=== PATIENT | male | born 1995 | race Caucasian/White ===

== ENCOUNTER 2020-05-14 20:02 | Inpatient (IN) | payer OTHER ==
--- NOTE | 2020-05-14 20:30 | EDM.PDOC ---
<Efrain Pink - Last Filed: 05/15/20 00:04> ED HPI GENERAL MEDICAL PROBLEM - General Stated Complaint: STOMACHE PAIN/ Time Seen by Provider: 05/14/20 20:07 - Related Data Allergies Allergy/AdvReac Type Severity Reaction Status Date / Time No Known Allergies Allergy Verified 05/15/20 02:48 Home Meds: Home Meds . [No Known Home Meds] 05/14/20 [History] Course - Re-Assessments/Exams Free Text/Narrative Re-Assessment/Exam: 05/14/20 22:00 This patient was signed out to me from Isabel Fairbanks at this time. I promptly performed a detailed physical examination, my examination was performed after ED treatments were initiated by the signout provider. Patient has been under the care of the previous provider up until this point. 05/15/20 00:[address] Kumar, who agrees to admit patient. The hospitalist's documentation supersedes all other documentation on this patient with regard to any conflicts or discrepancies from this point forward. Any emergency conditions have been treated to the ability of the ED prior to admission. MEDICAL DECISION MAKING: I reviewed the patients past medical records, lab and radiographic findings. I discussed the case with the patient. My differential diagnosis included: Hepatitis, COVID-19. This patient was evaluated for the symptoms described in the history of present illness. They were evaluated in the context of the global COVID-19 pandemic, which necessitated consideration that the patient might be at risk for infection with the SARS-CoV-2 virus that causes COVID-19. Institutional protocols and algorithms that pertain to the evaluation of patients at risk for COVID-19 are in a state of rapid change based on information released by regulatory bodies including the CDC and federal and state organizations. These policies and algorithms were followed during the patient's care. I wore full PPE, N95, face shield, gown and gloves throughout my evaluation and care of this patient. Departure - Departure Time of Disposition: 00:05 Disposition: Admitted As Inpatient 68 Condition: Good Clinical Impression: COVID-19, Hepatitis, Splenomegaly - Discharge Information *PRESCRIPTION DRUG MONITORING PROGRAM REVIEWED*: Not Applicable *COPY OF PRESCRIPTION DRUG MONITORING REPORT IN PATIENT MANDEEP: Not Applicable MLP Sign Off - Signature Requirements MLP Sign Off: Yes <Makayla Fairbanks - Last Filed: 05/15/20 15:02> ED HPI GENERAL MEDICAL PROBLEM - General Source of Information: Reports: Patient History Limitations: Reports: No Limitations - History of Present Illness INITIAL COMMENTS - FREE TEXT/NARRATIVE: HISTORY AND PHYSICAL: History of present illness: Patient is a 24-year-old male who presents to the ED today with concern of "tea colored "urine, facial swelling, and "kidney pain "for the past 4 days. Patient states that he has been feeling more rundown and tired in general and over the past 4 days has noticed that his urine is tea colored and he began having some pain in his kidney area. Patient states that when he wakes up in the morning, his face is more swollen and improves throughout the day. Patient states that at times he has a hard time opening up his eyes due to facial swelling but at this time is more improved than it has been. Patient states he does not have any health history and has not been taking any medications. Patient denies fever, chills, chest pain, shortness of breath, or cough. Denies headache, neck stiff ness, change in vision, syncope, or near syncope. Denies nausea, vomiting, abdominal pain, diarrhea, constipation, or dysuria. Has not noted any blood in urine or stool. Patient has been eating and drinking appropriately. Review of systems: As per history of present illness and below otherwise all systems reviewed and negative. Past medical history: As per history of present illness and as reviewed below otherwise noncontributory. Surgical history: As per history of present illness and as reviewed below otherwise noncontributory. Social history: See social history for further information Family history: As per history of present illness and as reviewed below otherwise noncontributory. Physical exam: General: Patient is alert, oriented, and in no acute distress. Patient sitting comfortably on exam table. HEENT: Mild edema of the upper and lower eyelids without erythema. Otherwise, atraumatic, normocephalic, pupils equal and reactive bilaterally, negative for conjunctival pallor or scleral icterus, mucous membranes moist, TMs normal bilaterally, throat clear, neck supple, nontender, trachea midline. No drooling or trismus noted. No meningeal signs. No hot potato voice noted. Lungs: Clear to auscultation, breath sounds equal bilaterally, chest nontender. Heart: S1S2, regular rate and rhythm without overt murmur Abdomen: Soft, nondistended, nontender. Negative for masses or hepatosplenomegaly. Negative for costovertebral tenderness. Pelvis: Stable nontender. Genitourinary: Deferred. Rectal: Deferred. Skin: Intact, warm, dry. No lesions or rashes noted. Extremities: Atraumatic, negative for cords or calf pain. Neurovascular unremarkable. Neuro: Awake, alert, oriented. Cranial nerves II through XII unremarkable. Cerebellum unremarkable. Motor and sensory unremarkable throughout. Exam nonfocal. Notes: Lab did call and states patient was positive for COVID [address] Pink has assumed care of patient and will follow remaining diagnostics and disposition for patient. Voices understanding and is agreeable to plan of care. Denies any further questions or concerns at this time. Diagnostics: CBC, CMP, UA, gonorrhea and chlamydia, microalbumin, CPK, Pt/INR, Etoh, acetaminophen Therapeutics: Prescription: Impression: Hepatitis COVID 19 infection Plan: Definitive disposition and diagnosis as appropriate pending reevaluation and review of above. lower abdominal Pain Score (Numeric/FACES): 5 ED ROS GENERAL - Review of Systems Review Of Systems: Comprehensive ROS is negative, except as noted in HPI. ED EXAM, GENERAL - Physical Exam Exam: See Below (see dictation) Course - Vital Signs Last Recorded V/S: Last Vital Signs Temp 97.9 F 05/15/20 11:40 Pulse 76 05/15/20 11:40 Resp 17 05/15/20 11:40 BP 107/68 05/15/20 11:40 Pulse Ox 96 05/15/20 11:40 - Orders/Labs/Meds Orders: Active Orders 24 hr Category Date Time Status CHLAMYDIA AND GONORRHEA BY TMA Stat Lab 05/14/20 20:37 Received Medication Orders Morphine Sulfate (Morphine) 2 mg IVPUSH Q3H PRN PRN Reason: Pain Last Admin: 05/15/20 03:09 Dose: 2 mg Documented by: LAMBERTO Labs: Laboratory Tests 05/14/20 05/14/20 05/14/20 Range/Units 20:25 20:56 20:56 WBC 10.71 (4.0-11.0) K/uL RBC 4.87 (4.50-5.90) M/uL Hgb 14.6 (13.0-17.0) g/dL Hct 41.5 (38.0-50.0) % MCV 85.2 (80.0-98.0) fL MCH 30.0 (27.0-32.0) pg MCHC 35.2 (31.0-37.0) g/dL RDW Std Deviation 40.0 (28.0-62.0) fl RDW Coeff of Ryan 13 (11.0-15.0) % Plt Count 93 L (150-400) K/uL MPV 10.90 (7.40-12.00) fL Neut % (Auto) 15.1 L (48.0-80.0) % Lymph % (Auto) 68.4 H (16.0-40.0) % [place] % (Auto) 13.7 (0.0-15.0) % Eos % (Auto) 0.1 (0.0-7.0) % Baso % (Auto) 2.7 H (0.0-1.5) % Neut # (Auto) 1.6 (1.4-5.7) K/uL Lymph # (Auto) 7.3 H (0.6-2.4) K/uL [place] # (Auto) 1.5 H (0.0-0.8) K/uL Eos # (Auto) 0.0 (0.0-0.7) K/uL Baso # (Auto) 0.3 H (0.0-0.1) K/uL Nucleated RBC % 0.0 /100WBC Nucleated RBCs # 0 K/uL INR Sodium 135 L (136-148) mmol/L Potassium 3.7 (3.5-5.1) mmol/L Chloride 98 (98-107) mmol/L Carbon Dioxide 25.5 (21.0-32.0) mmol/L BUN 9 (7.0-18.0) mg/dL Creatinine 1.1 (0.8-1.3) mg/dL Est Cr Clr Drug Dosing 101.37 mL/min Estimated GFR (MDRD) > 60.0 ml/min Glucose 100 (74-106) mg/dL Calcium 9.1 (8.5-10.1) mg/dL Total Bilirubin 2.4 H (0.2-1.0) mg/dL AST 86 H (15-37) IU/L ALT 149 H (14-63) IU/L Alkaline Phosphatase 457 H (46-116) U/L Creatine Kinase 58 (26-308) U/L Total Protein 7.1 (6.4-8.2) g/dL Albumin 3.9 (3.4-5.0) g/dL Globulin 3.2 (2.6-4.0) g/dL Albumin/Globulin Ratio 1.2 (0.9-1.6) Urine Color YELLOW Urine Appearance SLT CLOUDY Urine pH 6.0 (5.0-8.0) Ur Specific [place] 1.020 (1.001-1.035) Urine Protein TRACE H (NEGATIVE) mg/dL Urine Glucose (UA) NEGATIVE (NEGATIVE) mg/dL Urine Ketones TRACE H (NEGATIVE) mg/dL Urine Occult Blood TRACE-INTACT H (NEGATIVE) Urine Nitrite NEGATIVE (NEGATIVE) Urine Bilirubin LARGE H (NEGATIVE) Urine Ictotest POSITIVE Urine Urobilinogen 2.0 H (<2.0) EU/dL Ur Leukocyte Esterase NEGATIVE (NEGATIVE) Urine RBC 0-2 (0-2/HPF) Urine WBC 0-1 (0-5/HPF) Ur Epithelial Cells RARE (NONE-FEW) Calcium Oxalate Crystal FEW (NEGATIVE) Urine Bacteria FEW (NEGATIVE) Urinalysis Comment Acetaminophen ug/mL Ethyl Alcohol mg/dL 05/14/20 05/14/20 Range/Units 20:56 20:56 WBC (4.0-11.0) K/uL RBC (4.50-5.90) M/uL Hgb (13.0-17.0) g/dL Hct (38.0-50.0) % MCV (80.0-98.0) fL MCH (27.0-32.0) pg MCHC (31.0-37.0) g/dL RDW Std Deviation (28.0-62.0) fl RDW Coeff of Ryan (11.0-15.0) % Plt Count (150-400) K/uL MPV (7.40-12.00) fL Neut % (Auto) (48.0-80.0) % Lymph % (Auto) (16.0-40.0) % [place] % (Auto) (0.0-15.0) % Eos % (Auto) (0.0-7.0) % Baso % (Auto) (0.0-1.5) % Neut # (Auto) (1.4-5.7) K/uL Lymph # (Auto) (0.6-2.4) K/uL [place] # (Auto) (0.0-0.8) K/uL Eos # (Auto) (0.0-0.7) K/uL Baso # (Auto) (0.0-0.1) K/uL Nucleated RBC % /100WBC Nucleated RBCs # K/uL INR 1.09 Sodium (136-148) mmol/L Potassium (3.5-5.1) mmol/L Chloride (98-107) mmol/L Carbon Dioxide (21.0-32.0) mmol/L BUN (7.0-18.0) mg/dL Creatinine (0.8-1.3) mg/dL Est Cr Clr Drug Dosing mL/min Estimated GFR (MDRD) ml/min Glucose (74-106) mg/dL Calcium (8.5-10.1) mg/dL Total Bilirubin (0.2-1.0) mg/dL AST (15-37) IU/L ALT (14-63) IU/L Alkaline Phosphatase (46-116) U/L Creatine Kinase (26-308) U/L Total Protein (6.4-8.2) g/dL Albumin (3.4-5.0) g/dL Globulin (2.6-4.0) g/dL Albumin/Globulin Ratio (0.9-1.6) Urine Color Urine Appearance Urine pH (5.0-8.0) Ur Specific [place] (1.001-1.035) Urine Protein (NEGATIVE) mg/dL Urine Glucose (UA) (NEGATIVE) mg/dL Urine Ketones (NEGATIVE) mg/dL Urine Occult Blood (NEGATIVE) Urine Nitrite (NEGATIVE) Urine Bilirubin (NEGATIVE) Urine Ictotest Urine Urobilinogen (<2.0) EU/dL Ur Leukocyte Esterase (NEGATIVE) Urine RBC (0-2/HPF) Urine WBC (0-5/HPF) Ur Epithelial Cells (NONE-FEW) Calcium Oxalate Crystal (NEGATIVE) Urine Bacteria (NEGATIVE) Urinalysis Comment Acetaminophen <2.0 ug/mL Ethyl Alcohol < 3.0 mg/dL Meds: Medications Generic Name Dose Route Start Last Admin Trade Name Freq PRN Reason Stop Dose Admin Morphine Sulfate 2 mg 05/15/20 02:45 05/15/20 03:09 Morphine IVPUSH 2 mg Q3H PRN Administration Pain Discontinued Medications Generic Name Dose Route Start Last Admin Trade Name Rober PRN Reason Stop Dose Admin Sodium Chloride 1,000 mls @ 125 mls/hr 05/15/20 02:45 05/15/20 02:59 Normal Saline IV 125 mls/hr ASDIRECTED ABDIEL Administration - My Orders Last 24 Hours: My Active Orders 05/14/20 20:37 CHLAMYDIA AND GONORRHEA BY TMA Stat - Assessment/Plan Last 24 Hours: My Active Orders 05/14/20 20:37 CHLAMYDIA AND GONORRHEA BY TMA Stat
[2020-05-14 21:23] LABS: BLOOD UREA NITROGEN,BUN 9 mg/dL (7.0-18.0); CARBON DIOXIDE,CO2 25.5 mmol/L (21.0-32.0); CHLORIDE,CL 98 mmol/L (98-107); GLUCOSE RANDOM 100 mg/dL (74-106); POTASSIUM,K 3.7 mmol/L (3.5-5.1); SODIUM,NA 135 mmol/L (136-148)
[2020-05-14 22:31] LABS: ACETAMINOPHEN <2.0 ug/mL
--- NOTE | 2020-05-14 23:56 | US ---
INDICATION: Generalized abdominal pain TECHNIQUE: Ultrasound abdomen complete. Sonographic images of the entire abdomen were obtained using loza-scale and color Doppler. COMPARISON: None. FINDINGS: Liver: Borderline hepatomegaly without focal lesion. Echogenicity normal. Gallbladder: Contracted gallbladder without cholelithiasis. Common bile duct: 3 mm. Pancreas: Partially obscured by bowel gas without discrete abnormality. Spleen: Moderate splenomegaly with a craniocaudal diameter of 15.3 centimeters although without focal lesion. Kidneys: Both kidneys are normal in size. Normal echotexture and cortex. No masses, stones, or hydronephrosis. Vasculature: Proximal abdominal aorta and IVC are normal in caliber. IMPRESSION: 1. Contracted gallbladder without gross cholelithiasis or cholecystitis. 2. Moderate splenomegaly and borderline hepatomegaly. Dictated by Ahmet Sherman MD @ May 14 2020 11:51PM Signed by Dr. Ahmet Sherman @ May 14 2020 11:55PM
[2020-05-15] MEDS ORDERED: Sodium Chloride 0.9% 1,000 ML IV SCH (02:45)
[2020-05-15] MEDS: Morphine 2 MG/ML SYRINGE IVPUSH PRN ×2 (03:09→20:42)
[2020-05-15 06:29] LABS: BLOOD UREA NITROGEN,BUN 8 mg/dL (7.0-18.0); CARBON DIOXIDE,CO2 26.7 mmol/L (21.0-32.0); CHLORIDE,CL 99 mmol/L (98-107); GLUCOSE RANDOM 86 mg/dL (74-106); POTASSIUM,K 3.9 mmol/L (3.5-5.1); SODIUM,NA 137 mmol/L (136-148)
--- NOTE | 2020-05-15 07:38 | PCM.HP.2 ---
H&P History of Present Illness - General Date of Service: 05/15/20 Admit Problem/Dx: Admission Diagnosis/Problem Admission Diagnosis/Problem Liver enzymes abnormal Source of Information: Patient History Limitations: Reports: No Limitations - History of Present Illness Initial Comments - Free Text/Narative: Patient is a 24-year-old male with no significant past medical history presenting to the ED this morning after experiencing 1 week of increasing swelling of the face, occasional abdominal discomfort and "tea" colored urine. Denies any fever, chills, body aches, sick contacts however did test positive for COVID 2 days prior. Patient cannot recall any overt contact with anyone that is sick. Endorses taking 1 g of Benadryl daily for sleep; and 7 g of Kratom daily. Denies any illicit drug abuse or recent alcohol binging; ED course: Abdominal ultrasound: No acute gallbladder pathology however moderate splenomegaly and borderline hepatomegaly were appreciated. Vitals otherwise stable COVID negative Bedside: Endorsing no pain at this time; last received morphine at 3 AM; denies any fevers, chills, body aches. Denies any respiratory distress. lower abdominal Pain Score (Numeric/FACES): 6 - Related Data Allergies/Adverse Reactions: Allergies Allergy/AdvReac Type Severity Reaction Status Date / Time No Known Allergies Allergy Verified 05/15/20 02:48 Home Medications: Home Meds . [No Known Home Meds] 05/14/20 [History] Past Medical History - Past Health History Medical/Surgical History: Denies Medical/Surgical History Social & Family History - Family History Family Medical History: Noncontributory - Tobacco Use Smoking Status *Q: Never Smoker Second Hand Smoke Exposure: No - Caffeine Use Caffeine Use: Reports: Soda, Tea - Alcohol Use Days Per Week of Alcohol Use: 0 - Recreational Drug Use Recreational Drug Use: No H&P Review of Systems - Review of Systems: Review Of Systems: See Below General: Reports: Fatigue, Night Sweats HEENT: Reports: No Symptoms, Sore Throat, Other (+lidia-orbital swelling w. mild conjunctiviits ). Denies: Sinus Congestion, Visual Changes Pulmonary: Reports: No Symptoms Cardiovascular: Reports: No Symptoms Gastrointestinal: Reports: No Symptoms. Denies: Constipation, Diarrhea Genitourinary: Reports: No Symptoms. Denies: Dysuria, Frequency Musculoskeletal: Reports: No Symptoms Psychiatric: Reports: No Symptoms Neurological: Reports: No Symptoms Hematologic/Lymphatic: Reports: No Symptoms Exam - Exam Exam: See Below - Vital Signs Vital Signs: Last Vital Signs Temp 97.9 F 05/15/20 03:00 Pulse 74 05/15/20 03:00 Resp 16 05/15/20 03:00 BP 104/63 05/15/20 03:00 Pulse Ox 95 05/15/20 03:00 Weight: 68.039 kg - Exam Quality Assessment: No: Supplemental Oxygen General: Alert, Oriented, Cooperative HEENT: Other (+mild b.l conjunctivitis: posterior pharynx: tonsillitis w. exudates appreciated; uvula midline w. patent airway; no signs of onstruction ) Lungs: Clear to Auscultation, Normal Respiratory Effort Cardiovascular: Regular Rate, Regular Rhythm GI/Abdominal Exam: Soft, Non-Tender, No Organomegaly Back Exam: Normal Inspection Extremities: Normal Inspection, No Pedal Edema Skin: Warm, Dry. No: Rash Neurological: Cranial Nerves Intact Neuro Extensive - Mental Status: Alert, Oriented x3, Normal Mood/Affect Neuro Extensive - Motor, Sensory, Reflexes: Normal Gait Psychiatric: Alert, Normal Affect, Normal Mood - Patient Data Lab Results Last 24 hrs: Laboratory Results - last 24 hr 05/14/20 05/14/20 05/14/20 Range/Units 20:25 20:56 20:56 WBC 10.71 (4.0-11.0) K/uL RBC 4.87 (4.50-5.90) M/uL Hgb 14.6 (13.0-17.0) g/dL Hct 41.5 (38.0-50.0) % MCV 85.2 (80.0-98.0) fL MCH 30.0 (27.0-32.0) pg MCHC 35.2 (31.0-37.0) g/dL RDW Std Deviation 40.0 (28.0-62.0) fl RDW Coeff of Ryan 13 (11.0-15.0) % Plt Count 93 L (150-400) K/uL MPV 10.90 (7.40-12.00) fL Neut % (Auto) 15.1 L (48.0-80.0) % Lymph % (Auto) 68.4 H (16.0-40.0) % [place] % (Auto) 13.7 (0.0-15.0) % Eos % (Auto) 0.1 (0.0-7.0) % Baso % (Auto) 2.7 H (0.0-1.5) % Neut # (Auto) 1.6 (1.4-5.7) K/uL Lymph # (Auto) 7.3 H (0.6-2.4) K/uL [place] # (Auto) 1.5 H (0.0-0.8) K/uL Eos # (Auto) 0.0 (0.0-0.7) K/uL Baso # (Auto) 0.3 H (0.0-0.1) K/uL Add Manual Diff Neutrophils % (Manual) (48.0-80.0) % Lymphocytes % (Manual) (16.0-40.0) % Monocytes % (Manual) (0.0-15.0) % Basophils % (Manual) (0.0-1.5) % Nucleated RBC % 0.0 /100WBC Absolute Seg Neuts (1.4-5.7) Lymphocytes # (Manual) (0.6-2.4) Monocytes # (Manual) (0.0-0.8) Basophils # (Manual) (0.0-0.1) Nucleated RBCs # 0 K/uL INR Sodium 135 L (136-148) mmol/L Potassium 3.7 (3.5-5.1) mmol/L Chloride 98 (98-107) mmol/L Carbon Dioxide 25.5 (21.0-32.0) mmol/L BUN 9 (7.0-18.0) mg/dL Creatinine 1.1 (0.8-1.3) mg/dL Est Cr Clr Drug Dosing 101.37 mL/min Estimated GFR (MDRD) > 60.0 ml/min Glucose 100 (74-106) mg/dL Calcium 9.1 (8.5-10.1) mg/dL Total Bilirubin 2.4 H (0.2-1.0) mg/dL AST 86 H (15-37) IU/L ALT 149 H (14-63) IU/L Alkaline Phosphatase 457 H (46-116) U/L Creatine Kinase 58 (26-308) U/L Total Protein 7.1 (6.4-8.2) g/dL Albumin 3.9 (3.4-5.0) g/dL Globulin 3.2 (2.6-4.0) g/dL Albumin/Globulin Ratio 1.2 (0.9-1.6) Urine Color YELLOW Urine Appearance SLT CLOUDY Urine pH 6.0 (5.0-8.0) Ur Specific [place] 1.020 (1.001-1.035) Urine Protein TRACE H (NEGATIVE) mg/dL Urine Glucose (UA) NEGATIVE (NEGATIVE) mg/dL Urine Ketones TRACE H (NEGATIVE) mg/dL Urine Occult Blood TRACE-INTACT H (NEGATIVE) Urine Nitrite NEGATIVE (NEGATIVE) Urine Bilirubin LARGE H (NEGATIVE) Urine Ictotest POSITIVE Urine Urobilinogen 2.0 H (<2.0) EU/dL Ur Leukocyte Esterase NEGATIVE (NEGATIVE) Urine RBC 0-2 (0-2/HPF) Urine WBC 0-1 (0-5/HPF) Ur Epithelial Cells RARE (NONE-FEW) Calcium Oxalate Crystal FEW (NEGATIVE) Urine Bacteria FEW (NEGATIVE) Urinalysis Comment Acetaminophen ug/mL Ethyl Alcohol mg/dL SARS Virus RNA (PCR) (NEGATIVE) 05/14/20 05/14/20 05/15/20 Range/Units 20:56 20:56 00:37 WBC (4.0-11.0) K/uL RBC (4.50-5.90) M/uL Hgb (13.0-17.0) g/dL Hct (38.0-50.0) % MCV (80.0-98.0) fL MCH (27.0-32.0) pg MCHC (31.0-37.0) g/dL RDW Std Deviation (28.0-62.0) fl RDW Coeff of Ryan (11.0-15.0) % Plt Count (150-400) K/uL MPV (7.40-12.00) fL Neut % (Auto) (48.0-80.0) % Lymph % (Auto) (16.0-40.0) % [place] % (Auto) (0.0-15.0) % Eos % (Auto) (0.0-7.0) % Baso % (Auto) (0.0-1.5) % Neut # (Auto) (1.4-5.7) K/uL Lymph # (Auto) (0.6-2.4) K/uL [place] # (Auto) (0.0-0.8) K/uL Eos # (Auto) (0.0-0.7) K/uL Baso # (Auto) (0.0-0.1) K/uL Add Manual Diff Neutrophils % (Manual) (48.0-80.0) % Lymphocytes % (Manual) (16.0-40.0) % Monocytes % (Manual) (0.0-15.0) % Basophils % (Manual) (0.0-1.5) % Nucleated RBC % /100WBC Absolute Seg Neuts (1.4-5.7) Lymphocytes # (Manual) (0.6-2.4) Monocytes # (Manual) (0.0-0.8) Basophils # (Manual) (0.0-0.1) Nucleated RBCs # K/uL INR 1.09 Sodium (136-148) mmol/L Potassium (3.5-5.1) mmol/L Chloride (98-107) mmol/L Carbon Dioxide (21.0-32.0) mmol/L BUN (7.0-18.0) mg/dL Creatinine (0.8-1.3) mg/dL Est Cr Clr Drug Dosing mL/min Estimated GFR (MDRD) ml/min Glucose (74-106) mg/dL Calcium (8.5-10.1) mg/dL Total Bilirubin (0.2-1.0) mg/dL AST (15-37) IU/L ALT (14-63) IU/L Alkaline Phosphatase (46-116) U/L Creatine Kinase (26-308) U/L Total Protein (6.4-8.2) g/dL Albumin (3.4-5.0) g/dL Globulin (2.6-4.0) g/dL Albumin/Globulin Ratio (0.9-1.6) Urine Color Urine Appearance Urine pH (5.0-8.0) Ur Specific [place] (1.001-1.035) Urine Protein (NEGATIVE) mg/dL Urine Glucose (UA) (NEGATIVE) mg/dL Urine Ketones (NEGATIVE) mg/dL Urine Occult Blood (NEGATIVE) Urine Nitrite (NEGATIVE) Urine Bilirubin (NEGATIVE) Urine Ictotest Urine Urobilinogen (<2.0) EU/dL Ur Leukocyte Esterase (NEGATIVE) Urine RBC (0-2/HPF) Urine WBC (0-5/HPF) Ur Epithelial Cells (NONE-FEW) Calcium Oxalate Crystal (NEGATIVE) Urine Bacteria (NEGATIVE) Urinalysis Comment Acetaminophen <2.0 ug/mL Ethyl Alcohol < 3.0 mg/dL SARS Virus RNA (PCR) NEGATIVE (NEGATIVE) 05/15/20 05/15/20 Range/Units 05:50 05:50 WBC 11.29 H (4.0-11.0) K/uL RBC 4.83 (4.50-5.90) M/uL Hgb 14.0 (13.0-17.0) g/dL Hct 41.2 (38.0-50.0) % MCV 85.3 (80.0-98.0) fL MCH 29.0 (27.0-32.0) pg MCHC 34.0 (31.0-37.0) g/dL RDW Std Deviation 40.2 (28.0-62.0) fl RDW Coeff of Ryan 13 (11.0-15.0) % Plt Count 100 L (150-400) K/uL MPV 10.50 (7.40-12.00) fL Neut % (Auto) (48.0-80.0) % Lymph % (Auto) (16.0-40.0) % [place] % (Auto) (0.0-15.0) % Eos % (Auto) (0.0-7.0) % Baso % (Auto) (0.0-1.5) % Neut # (Auto) (1.4-5.7) K/uL Lymph # (Auto) (0.6-2.4) K/uL [place] # (Auto) (0.0-0.8) K/uL Eos # (Auto) (0.0-0.7) K/uL Baso # (Auto) (0.0-0.1) K/uL Add Manual Diff YES Neutrophils % (Manual) 18 L (48.0-80.0) % Lymphocytes % (Manual) 78 H (16.0-40.0) % Monocytes % (Manual) 3 (0.0-15.0) % Basophils % (Manual) 1 (0.0-1.5) % Nucleated RBC % 0.0 /100WBC Absolute Seg Neuts 2.0 (1.4-5.7) Lymphocytes # (Manual) 8.8 H (0.6-2.4) Monocytes # (Manual) 0.3 (0.0-0.8) Basophils # (Manual) 0.1 (0.0-0.1) Nucleated RBCs # 0 K/uL INR Sodium 137 (136-148) mmol/L Potassium 3.9 (3.5-5.1) mmol/L Chloride 99 (98-107) mmol/L Carbon Dioxide 26.7 (21.0-32.0) mmol/L BUN 8 (7.0-18.0) mg/dL Creatinine 1.1 (0.8-1.3) mg/dL Est Cr Clr Drug Dosing 101.37 mL/min Estimated GFR (MDRD) > 60.0 ml/min Glucose 86 (74-106) mg/dL Calcium 8.8 (8.5-10.1) mg/dL Total Bilirubin 2.4 H (0.2-1.0) mg/dL AST 97 H (15-37) IU/L ALT 153 H (14-63) IU/L Alkaline Phosphatase 456 H (46-116) U/L Creatine Kinase (26-308) U/L Total Protein 6.8 (6.4-8.2) g/dL Albumin 3.7 (3.4-5.0) g/dL Globulin 3.1 (2.6-4.0) g/dL Albumin/Globulin Ratio 1.2 (0.9-1.6) Urine Color Urine Appearance Urine pH (5.0-8.0) Ur Specific [place] (1.001-1.035) Urine Protein (NEGATIVE) mg/dL Urine Glucose (UA) (NEGATIVE) mg/dL Urine Ketones (NEGATIVE) mg/dL Urine Occult Blood (NEGATIVE) Urine Nitrite (NEGATIVE) Urine Bilirubin (NEGATIVE) Urine Ictotest Urine Urobilinogen (<2.0) EU/dL Ur Leukocyte Esterase (NEGATIVE) Urine RBC (0-2/HPF) Urine WBC (0-5/HPF) Ur Epithelial Cells (NONE-FEW) Calcium Oxalate Crystal (NEGATIVE) Urine Bacteria (NEGATIVE) Urinalysis Comment Acetaminophen ug/mL Ethyl Alcohol mg/dL SARS Virus RNA (PCR) (NEGATIVE) Result Diagrams: 05/15/20 05:50 05/15/20 05:50 Sepsis Event Note - Evaluation Sepsis Screening Result: No Definite Risk - Focused Exam Vital Signs: Vital Signs Temp Pulse Resp BP BP Pulse Ox 05/15/20 03:00 97.9 F 74 16 104/63 95 05/15/20 02:16 71 16 109/68 94 L 05/15/20 01:46 78 18 109/68 94 L 05/15/20 00:02 96.8 F L 78 20 127/74 98 05/14/20 20:31 97.8 F 85 18 115/74 95 Problem List Initiated/Reviewed/Updated: Yes Orders Last 24hrs: Active Orders 24 hr Category Date Time Status Admission Status [Patient Status] [ADT] Stat ADT 05/15/20 00:17 Active Regular Diet [DIET] Diet 05/15/20 Breakfast Active CHLAMYDIA AND GONORRHEA BY TMA Stat Lab 05/14/20 20:37 Received Morphine Med 05/15/20 02:45 Active 2 mg IVPUSH Q3H PRN Sodium Chloride 0.9% [Normal Saline] 1,000 ml Med 05/15/20 02:45 Active IV ASDIRECTED Medication Orders Sodium Chloride (Normal Saline) 1,000 mls @ 125 mls/hr IV ASDIRECTED ABDIEL Last Admin: 05/15/20 02:59 Dose: 125 mls/hr Documented by: LAMBERTO Morphine Sulfate (Morphine) 2 mg IVPUSH Q3H PRN PRN Reason: Pain Last Admin: 05/15/20 03:09 Dose: 2 mg Documented by: LAMBERTO Assessment/Plan Comment:: Assessment: 1. New onset facial swelling with dark-colored urine 2. Recently COVID positive 3. Positive for infectious mononucleosis 4. Transaminitis with elevated alkaline phosphatase 5. Splenomegaly with moderate hepatomegaly with transaminitis Plan Admit to observation.. Full code. I's and O's per routine. Vitals per routine. Full isolation precautions secondary to COVID + status 1. Elevated liver enzymes, trace protein in urine, and facial swelling: Concerns for PSGN; negative strep; sent for cultures [place] screen however was positive COVID negative on admission however patient endorses testing +2 days earlier Does mention sore throat with increasing fatigue; possibly secondary to his infectious mononucleosis combined with COVID-19 symptomatology Continue to monitor. No acute distress We will order a urine protein/24-hour collection; reassess in AM 2. Liver enzymes elevation could also possibly be due to [id number] use of Kratom; we will continue to monitor If abdominal pain returns or LFTs are trending upwards; will consider CT abdomen and pelvis; however physical examination yields no abdominal tenderness and or organomegaly.
[2020-05-16 06:29] LABS: BLOOD UREA NITROGEN,BUN 8 mg/dL (7.0-18.0); CARBON DIOXIDE,CO2 26.1 mmol/L (21.0-32.0); CHLORIDE,CL 102 mmol/L (98-107); GLUCOSE RANDOM 96 mg/dL (74-106); POTASSIUM,K 3.6 mmol/L (3.5-5.1); SODIUM,NA 139 mmol/L (136-148)
--- NOTE | 2020-05-16 20:03 | PCM.DCSUM1 ---
<Huey Echeverria - Last Filed: 05/16/20 20:18> Discharge Summary - Hospital Course Free Text/Narrative:: 24-year-old male admitted to the medical floor due to elevated transaminases with elevated alkaline phosphatase, COVID +. Patient had a one week history of facial swelling, abdominal discomfort and "tea" colored urine. Patient denies any exposure to know sick contacts, illicit drug use, alcohol abuse, but does states that he consumes 7 g of Kratom daily. During thew patients hospital stay, he denied any fever, chills, abdominal pain, nausea, vomiting, diarrhea, SOB, chest pain. Hepatitis Lab and 24hr urine were collected. Results to follow. Diagnosis: Stroke: No - Discharge Data Discharge Date: 05/16/20 Discharge Disposition: Home, Self-Care 01 Condition: Stable - Referral to Home Health Primary Care Physician: PCP None - Discharge Plan *PRESCRIPTION DRUG MONITORING PROGRAM REVIEWED*: Not Applicable *COPY OF PRESCRIPTION DRUG MONITORING REPORT IN PATIENT MANDEEP: Not Applicable Home Medications: Home Meds . [No Known Home Meds] 05/14/20 [History] Patient Handouts: COVID-19 Frequently Asked Questions, COVID-19, COVID-19: How to Protect Yourself and Others - CDC, Chronic Kidney Disease, Adult, Easy-to- Read, Infection Prevention in the Home, Coronavirus Information 12/01/19, Prevent the Spread of COVID-19 if You Are Sick - [facility] [facility] Referrals: Olivia Morales MD [Resident] - - Discharge Summary/Plan Comment DC Time >30 min.: No - Review of Systems General: Reports: No Symptoms HEENT: Reports: No Symptoms Pulmonary: Reports: No Symptoms Cardiovascular: Reports: No Symptoms Gastrointestinal: Reports: No Symptoms Genitourinary: Reports: No Symptoms - Patient Data Vitals - Most Recent: Last Vital Signs Temp 98.8 F 05/16/20 12:00 Pulse 85 05/16/20 12:00 Resp 18 05/16/20 12:00 BP 113/70 05/16/20 12:00 Pulse Ox 96 05/16/20 12:00 Weight - Most Recent: 68.039 kg I&O - Last 24 hours: Intake & Output 05/16/20 05/16/20 05/16/20 06:59 14:59 22:59 Intake Total 1500 900 Output Total 900 200 Balance 600 700 Lab Results - Last 24 hrs: Laboratory Results - last 24 hr 05/15/20 05/16/20 05/16/20 Range/Units 14:30 06:05 06:05 WBC 12.48 H (4.0-11.0) K/uL RBC 4.92 (4.50-5.90) M/uL Hgb 14.5 (13.0-17.0) g/dL Hct 42.0 (38.0-50.0) % MCV 85.4 (80.0-98.0) fL MCH 29.5 (27.0-32.0) pg MCHC 34.5 (31.0-37.0) g/dL RDW Std Deviation 40.8 (28.0-62.0) fl RDW Coeff of Ryan 13 (11.0-15.0) % Plt Count 105 L (150-400) K/uL MPV 10.40 (7.40-12.00) fL Add Manual Diff YES Neutrophils % (Manual) 14 L (48.0-80.0) % Band Neutrophils % 1 % Lymphocytes % (Manual) 79 H (16.0-40.0) % Monocytes % (Manual) 6 (0.0-15.0) % Nucleated RBC % 0.0 /100WBC Absolute Seg Neuts 1.7 (1.4-5.7) Band Neutrophils # 0.1 Lymphocytes # (Manual) 9.9 H (0.6-2.4) Monocytes # (Manual) 0.7 (0.0-0.8) Nucleated RBCs # 0 K/uL Sodium 139 (136-148) mmol/L Potassium 3.6 (3.5-5.1) mmol/L Chloride 102 (98-107) mmol/L Carbon Dioxide 26.1 (21.0-32.0) mmol/L BUN 8 (7.0-18.0) mg/dL Creatinine 1.0 (0.8-1.3) mg/dL Est Cr Clr Drug Dosing 111.51 mL/min Estimated GFR (MDRD) > 60.0 ml/min Glucose 96 (74-106) mg/dL Calcium 8.8 (8.5-10.1) mg/dL Total Bilirubin 2.4 H (0.2-1.0) mg/dL AST 122 H (15-37) IU/L ALT 185 H (14-63) IU/L Alkaline Phosphatase 490 H (46-116) U/L Total Protein 6.7 (6.4-8.2) g/dL Albumin 3.5 (3.4-5.0) g/dL Globulin 3.2 (2.6-4.0) g/dL Albumin/Globulin Ratio 1.1 (0.9-1.6) Ur Collection Duration 24 Urine Total Volume 2525 H (800-1800) Ur Total Protein Conc 9.9 (0-14) mg/dL Ur Total Protein 24 Hr 249.9 mg/24HRS FRANCOIS Results - Last 24 hrs: Microbiology 05/15/20 09:15 Quick Strep Confirmation Culture - Final Throat NO GROUP A STREP ISOLATED REFERENCE RANGE: NEGATIVE Group A Streptococcus Rapid Screen - Final NEGATIVE STREP A SCREEN REFERENCE RANGE: NEGATIVE Med Orders - Current: Current Medications Morphine Sulfate (Morphine) 2 mg IVPUSH Q3H PRN PRN Reason: Pain Last Admin: 05/15/20 20:42 Dose: 2 mg Documented by: Discontinued Medications Sodium Chloride (Normal Saline) 1,000 mls @ 125 mls/hr IV ASDIRECTED ABDIEL Last Admin: 05/15/20 02:59 Dose: 125 mls/hr Documented by: - Exam General: Reports: Alert, Oriented, Cooperative HEENT: Reports: Pupils Equal, EOMI Neck: Reports: Trachea Midline Lungs: Reports: Clear to Auscultation, Normal Respiratory Effort Cardiovascular: Reports: Regular Rhythm GI/Abdominal Exam: Normal Bowel Sounds, Soft, Non-Tender Back Exam: Reports: Normal Inspection Extremities: Normal Inspection, Normal Range of Motion, No Pedal Edema Skin: Reports: Warm, Dry <Silvio Cardoso - Last Filed: 05/16/20 22:30> Discharge Summary - Referral to Home Health Primary Care Physician: PCP None - Patient Data Vitals - Most Recent: Last Vital Signs Temp 37.1 C 05/16/20 12:00 Pulse 85 05/16/20 12:00 Resp 18 05/16/20 12:00 BP 113/70 05/16/20 12:00 Pulse Ox 96 05/16/20 12:00 I&O - Last 24 hours: Intake & Output 05/16/20 05/16/20 05/16/20 06:59 14:59 22:59 Intake Total 1500 900 Output Total 900 200 Balance 600 700 Lab Results - Last 24 hrs: Laboratory Results - last 24 hr 05/15/20 05/16/20 05/16/20 Range/Units 14:30 06:05 06:05 WBC 12.48 H (4.0-11.0) K/uL RBC 4.92 (4.50-5.90) M/uL Hgb 14.5 (13.0-17.0) g/dL Hct 42.0 (38.0-50.0) % MCV 85.4 (80.0-98.0) fL MCH 29.5 (27.0-32.0) pg MCHC 34.5 (31.0-37.0) g/dL RDW Std Deviation 40.8 (28.0-62.0) fl RDW Coeff of Ryan 13 (11.0-15.0) % Plt Count 105 L (150-400) K/uL MPV 10.40 (7.40-12.00) fL Add Manual Diff YES Neutrophils % (Manual) 14 L (48.0-80.0) % Band Neutrophils % 1 % Lymphocytes % (Manual) 79 H (16.0-40.0) % Monocytes % (Manual) 6 (0.0-15.0) % Nucleated RBC % 0.0 /100WBC Absolute Seg Neuts 1.7 (1.4-5.7) Band Neutrophils # 0.1 Lymphocytes # (Manual) 9.9 H (0.6-2.4) Monocytes # (Manual) 0.7 (0.0-0.8) Nucleated RBCs # 0 K/uL Sodium 139 (136-148) mmol/L Potassium 3.6 (3.5-5.1) mmol/L Chloride 102 (98-107) mmol/L Carbon Dioxide 26.1 (21.0-32.0) mmol/L BUN 8 (7.0-18.0) mg/dL Creatinine 1.0 (0.8-1.3) mg/dL Est Cr Clr Drug Dosing 111.51 mL/min Estimated GFR (MDRD) > 60.0 ml/min Glucose 96 (74-106) mg/dL Calcium 8.8 (8.5-10.1) mg/dL Total Bilirubin 2.4 H (0.2-1.0) mg/dL AST 122 H (15-37) IU/L ALT 185 H (14-63) IU/L Alkaline Phosphatase 490 H (46-116) U/L Total Protein 6.7 (6.4-8.2) g/dL Albumin 3.5 (3.4-5.0) g/dL Globulin 3.2 (2.6-4.0) g/dL Albumin/Globulin Ratio 1.1 (0.9-1.6) Ur Collection Duration 24 Urine Total Volume 2525 H (800-1800) Ur Total Protein Conc 9.9 (0-14) mg/dL Ur Total Protein 24 Hr 249.9 mg/24HRS FRANCOIS Results - Last 24 hrs: Microbiology 05/15/20 09:15 Quick Strep Confirmation Culture - Final Throat NO GROUP A STREP ISOLATED REFERENCE RANGE: NEGATIVE Group A Streptococcus Rapid Screen - Final NEGATIVE STREP A SCREEN REFERENCE RANGE: NEGATIVE Med Orders - Current: Current Medications Discontinued Medications Sodium Chloride (Normal Saline) 1,000 mls @ 125 mls/hr IV ASDIRECTED ABDIEL Last Admin: 05/15/20 02:59 Dose: 125 mls/hr Documented by: Morphine Sulfate (Morphine) 2 mg IVPUSH Q3H PRN PRN Reason: Pain Last Admin: 05/15/20 20:42 Dose: 2 mg Documented by: - Free Text/Narrative Note: I have seen and evaluated the patient. I have discussed findings and treatment plan with resident. I agree with the assessment and plan as outlined in the following note. Patient's symptoms resolved on admission. His LFTs remained stable. He was discharged home to have close follow up with [facility] for continued monitoring of his liver function tests. He was instructed to self isolate at home.
== END 2020-05-16 15:00 | disposition home or self-care (01) | DRG 948 ==
LOC: MW.ED 20:02 → MW.MS 05-15 00:17
PROVIDERS: ADMIT Internal Medicine; ATTEND Internal Medicine
DX: R74.8 Abnormal levels of other serum enzymes (principal); B27.90 Infectious mononucleosis, unspecified without complication; Z20.828 Contact with and (suspected) exposure to other viral communicable diseases; R60.0 Localized edema; R16.2 Hepatomegaly with splenomegaly, not elsewhere classified
CPT/HCPCS: 36415; 76700; 76700-26; 80053; 80074; 80307; 81001; 82550; 84156; 85025; 85610; 86308; 87081; 87491; 87591; 87880-QW; 99284; 99285-25; J2270; J7030; U0002

== ENCOUNTER 2021-05-28 14:18 | Emergency (ER) | payer BC ==
[2021-05-28] MEDS ORDERED: Amoxicillin/Clavulanate K 875-125 MG Tab PO ONE (15:53)
[2021-05-28] MEDS ORDERED: Lidocaine 2% Viscous Solution 100 ML Bottle PO ONE (15:55)
--- NOTE | 2021-05-28 15:58 | EDM.PDOC ---
ED HPI GENERAL MEDICAL PROBLEM - General Chief Complaint: ENT Problem Stated Complaint: TOOTH ACHE Time Seen by Provider: 05/28/21 15:15 - History of Present Illness INITIAL COMMENTS - FREE TEXT/NARRATIVE: CHIEF COMPLAINT(S): Toothache HISTORY OF PRESENT ILLNESS: This is a 25-year-old man with a past medical history of toothache who is on amoxicillin who comes to the emergency department with a chief complaint of toothache. The patient states that for approximately 3 days now has been experiencing a toothpick. He states that he was put on amoxicillin for an abscess. He states that he has been taking Tylenol 500 to 1000 mg every 6 hours without any relief of the pain. He has been using Advil also. He describes the pain as throbbing, achy and pressure on a tooth had a prior root canal. He states that he has had some swelling along the right side of his face. He denies any drooling, voice changes, sore throat, headache, blurry vision, earache. He denies any fever or chills. REVIEW OF SYSTEMS: Constitutional: Denies fever, chills. Eyes: Denies eye pain Ears, Nose, Mouth, & Throat: Positive for toothache and right-sided facial swelling, denies drooling Cardiovascular: Denies chest pain Respiratory: Denies shortness of breath Genitourinary: Denies hematuria Skin:Denies a rash MSK: Denies joint pain Neurological: Denies blurred vision, headache, loss of vision Psychiatric: Denies depression PAST MEDICAL HISTORY: As per history of present illness and as reviewed below otherwise noncontributory. SURGICAL HISTORY: As per history of present illness and as reviewed below otherwise noncontributory. SOCIAL HISTORY: As per history of present illness and as reviewed below otherwise noncontributory. FAMILY HISTORY: As per history of present illness and as reviewed below otherwise noncontributory. EXAMINATION OF ORGAN SYSTEMS/BODY AREAS: Constitutional: Heart rate 79 respiratory rate 18 with an oxygen saturation 98% on room air. Blood pressure 105/66, temperature 36.7 General: Well-appearing young man who is in no acute distress Psychiatric: Appropriate mood and affect. Eyes: No scleral icterus or conjunctival erythema pupils are equal round reactive to light. ENMT: Moist mucous membranes. No pharyngeal erythema no drooling, no trismus, no stridor. There is some swelling along the right side of the patient's face. There is no obvious dental caries, gum erythema or evidence of periapical abscess. There is no buccal irritation or erythema. Cardiovascular: Regular, rate, and rhythm. No gallops, murmurs, or rubs. Bilateral upper extremity pulses symmetric and intact. No peripheral edema. No JVD. Respiratory: Lungs clear to auscultation bilaterally. No wheezes, rales, or rhonchi. Neurological: Alert, GCS 15 MEDICAL DECISION MAKING AND COURSE IN THE ED WITH INTERPRETATION/REVIEW OF DIAGNOSTIC STUDIES: This is a 25-year-old man with a recent diagnosis of possible dental abscess on amoxicillin who comes to the emergency department with worsening swelling, pain who has no evidence of any trismus, drooling, is speaking in full sentences without any stridor and is afebrile and normal- appearing. At this time we will broaden the patient's antibiotics to Augmentin and provide the patient with viscous lidocaine soaked cotton balls to help with pain management. I did encourage the patient to follow-up with dentistry and given strict return precautions. He was amenable to discharge and had no further questions DISPOSITION: The patient was discharged home in stable condition. The patient will follow up with dentist CONDITION: Good PROCEDURES: None FINAL IMPRESSION(S)/DIAGNOSES: 1. Acute dental abscess Dustin Lassiter M.D. dental Pain Score (Numeric/FACES): 3 - Related Data Allergies Allergy/AdvReac Type Severity Reaction Status Date / Time No Known Allergies Allergy Verified 05/28/21 14:48 Home Meds: Home Meds Amoxicillin 500 mg PO BID 05/28/21 [History] Amoxicillin/Potassium Clav [Augmentin 875-125 Tablet] 1 each PO BID #14 tablet 05/28/21 [Rx] Famotidine 40 mg PO DAILY #14 tablet 05/28/21 [Rx] Past Medical History - Past Health History Medical/Surgical History: Denies Medical/Surgical History - Infectious Disease History Infectious Disease History: Reports: None Social & Family History - Family History Family Medical History: No Pertinent Family History - Caffeine Use Caffeine Use: Reports: Soda - Recreational Drug Use Recreational Drug Use: No ED ROS GENERAL - Review of Systems Review Of Systems: See Below ED EXAM, GENERAL - Physical Exam Exam: See Below Course - Vital Signs Last Recorded V/S: Last Vital Signs Temp 36.7 C 05/28/21 14:49 Pulse 80 05/28/21 16:19 Resp 18 05/28/21 16:19 BP 110/71 05/28/21 16:19 Pulse Ox 98 05/28/21 16:19 - Orders/Labs/Meds Meds: Medications Discontinued Medications Generic Name Dose Route Start Last Admin Trade Name Rober PRN Reason Stop Dose Admin Amoxicillin/Clavulanate Potassium 1 tab 05/28/21 15:53 05/28/21 16:09 Amoxicillin/Clavulanate K 875-125 Mg Tab PO 05/28/21 15:54 1 tab ONETIME ONE Administration Lidocaine HCl 20 ml 05/28/21 15:55 05/28/21 16:08 Lidocaine 2% Viscous Solution 100 Ml Bottle PO 05/28/21 15:56 Not Given ONETIME ONE Lidocaine HCl Confirm 05/28/21 16:03 05/28/21 16:08 Lidocaine 2% Viscous Solution 15 Ml Cup Administered 05/28/21 16:04 Not Given Dose 15 ml .ROUTE .STK-MED ONE Lidocaine HCl 15 ml 05/28/21 16:07 05/28/21 16:09 Lidocaine 2% Viscous Solution 15 Ml Cup PO 05/28/21 16:08 15 ml ONETIME ONE Administration Departure - Departure Time of Disposition: 15:58 Disposition: Home, Self-Care 01 Condition: Fair Clinical Impression: Dental abscess - Discharge Information *PRESCRIPTION DRUG MONITORING PROGRAM REVIEWED*: No *COPY OF PRESCRIPTION DRUG MONITORING REPORT IN PATIENT MANDEEP: No Prescriptions: Amoxicillin/Potassium Clav [Augmentin 875-125 Tablet] 1 each PO BID #14 tablet Famotidine 40 mg PO DAILY #14 tablet Instructions: Dental Abscess, [id number] Referrals: PCP,None [Primary Care Provider] - Forms: ED Department Discharge Additional Instructions: Your evaluated today on an emergent basis. At this time I believe that the amoxicillin you are taking is not helping with your dental abscess. Therefore we switched you to Augmentin. I recommend that she continue use ibuprofen as you have been taking. In addition to this I would like you to elevate your head when sleeping, use Tylenol 500 mg to 1000 mg every 6 hours, and use the lidocaine soaked cotton balls as needed for pain relief. As discussed it is important that you follow-up with a dentist for continued management. If you have any worsening pain, swelling, blurry vision, loss of vision, drooling, inability or decreased ability to open your mouth I would like you to return to the emergency department. [facility] [address] [place] [address] [facility] [address] [place] [address] . The patient is informed of any results of their evaluation and diagnostic workup and all questions are answered. They are given discharge instructions and return precautions. The patient is stable for discharge. The patient states they understand and agree with the plan and that they will return if their symptoms get worse or if they have any new concerns. The following information is given to patients seen in the emergency department who are being discharged to home. This information is to outline your options for follow-up care. We provide all patients seen in our emergency department with a follow-up referral. The need for follow-up, as well as the timing and circumstances, are variable depending upon the specifics of your emergency department visit. If you don't have a primary care physician on staff, we will provide you with a referral. We always advise you to contact your personal physician following an emergency department visit to inform them of the circumstance of the visit and for follow-up with them and/or the need for any referrals to a consulting specialist. The emergency department will also refer you to a specialist when appropriate. This referral assures that you have the opportunity for follow-up care with a specialist. All of these measure are taken in an effort to provide you with optimal care, which includes your follow-up. Under all circumstances we always encourage you to contact your private physician who remains a resource for coordinating your care. When calling for follow-up care, please make the office aware that this follow-up is from your recent emergency room visit. If for any reason you are refused follow-up, please contact the [facility] Emergency Department at and asked to speak to the emergency department charge nurse.
[2021-05-28] MEDS ORDERED: Lidocaine 2% Viscous Solution 15 ML Cup ONE (16:03)
[2021-05-28] MEDS ORDERED: Lidocaine 2% Viscous Solution 15 ML Cup PO ONE (16:07)
== END 2021-05-28 16:20 | disposition home or self-care (01) ==
LOC: MW.ED 14:18
DX: K04.7 Periapical abscess without sinus (principal)
CPT/HCPCS: 99282; A9270